=== PATIENT | female | born 1990 | race Caucasian/White ===

== ENCOUNTER 2017-08-26 21:12 | Emergency (ER) | payer OTHER ==
[2017-08-26] MEDS: PERCOCET 5MG/325MG TAB PO (22:54)
[2017-08-26] MEDS: KETOROLAC 30 MG/ML VIAL (J1885) IV (23:35)
== END 2017-08-27 00:38 | disposition home or self-care (01) ==
LOC: M ED 08-27 00:38
DX: G43.109 Migraine with aura, not intractable, without status migrainosus (principal)
CPT/HCPCS: J1885